=== PATIENT | male | born 1965 | race Caucasian/White ===

== ENCOUNTER 2019-04-20 16:09 | Emergency (ER) | payer MEDICAID ==
[~2019-04-20] VITALS: Ht 175.3 cm; Wt 67.1 kg
[2019-04-20 16:10] VITALS: BP 152/110
--- NOTE | 2019-04-20 16:16 | NUR ---
EVELINE FROM HOME FOR EVALUATION, PT ASLEEP ON THE COUCH AND GIRLFRIEND CALLED EMS AFTER PT HAD FALLEN OFF COUGH AND BECAME UNRESPONSIVE, GF THEN INITATED CPR AND THEN NOTED PATIENT BREATHING AGAIN BUT NOT ACTING NORMAL; BS ON SCENE WAS 307. PT UPON ARRIVAL IS AWAKE, ALERT X4, GCS 15. PT REMEMBERS SLEEPING ON THE COUGH AND WAKING UP TO PARAMEDICS SURROUNDING HIM. DENIES PAIN, WEAKNESS, DIZZINESS. HAND INGREDIENT SCALER EQUAL 5/5 BILATERALLY. PERRL. HX HTN Addendum: 04/20/19 at 1617 by MELISSA FULL CLEAR SPEECH
--- NOTE | 2019-04-20 16:17 | NUR ---
DR RENE EVALUATING PT AT BEDSIDE
--- NOTE | 2019-04-20 16:19 | NUR ---
PT DOES NOT REMEMBER CPR BY GIRLFRIEND
--- NOTE | 2019-04-20 16:27 | NUR ---
DR RENE EVALUATING PT'S GIRLFRIEND AT BEDSIDE. PER GIRLFRIEND: PT WAS SLEEPING ON THE SOFA WHEN SHE HEARD A THUMP AND FOUND PT ON THE FLOOR. PT WAS STICKING TONGUE OUT, FACE TURNING RED "LIKE A TOMATO", AND "HIS FIST THUMPING AGAINST HIS CHEST". GIRLFRIEND INITIATED CPR FOR 30-40 SECONDS AND PT "STARTED BREATHING THROUGH THE NOSE".
[2019-04-20] MEDS ORDERED: LORazepam 2 MG/ML VIAL ONE (16:51)
--- NOTE | 2019-04-20 16:52 | NUR ---
PT STATES HE NEEDS TO HAVE BM NOW, WANTS TO GO TO BATHROOM. PT TRANSFER SELF FROM GURNEY TO W/C, AND W/C ASSIST TO BATHROOM WITH GIRLFRIEND. GIRLFRIEND TO REMAIN IN BATHROOM TO HELP PT AND ADVISED TO PULL HELP CORD IF NEEDING ASSISTANCE.
[2019-04-20] MEDS ORDERED: LORazepam 2 MG/ML VIAL IVP ONE (16:55)
--- NOTE | 2019-04-20 16:57 | NUR ---
PT HAD SEIZURE IN BATHROOM LASTING LESS THAN 1 MINUTE APPROXIMATELY, NO HX OF SEIZURE. GIRLFRIEND WAS WITH PT WHEN SEIZURE STARTED. GIRLFRIEND PULLED HELP CORD AND STAFF AND DR RENE ARRIVED TO BATHROOM. PT WITH VIOLENT MUSCLE CONTRACTIONS AND LOC. FACE TURNING RED THEN PALE. RETURN OF NORMAL SKIN COLOR TO FACE WHEN MUSCLE CONTRACTIONS ENDED. NO BOWEL OR BLADDER INCONTINENCE. NO ORAL TRAUMA. PT DID NOT FALL OUT OF W/C. PT CARRIED FROM WHEELCHAIR TO GURNEY BY STAFF. PT POST ICTAL. PT PLACED ON BEDSIDE MONITOR. WITH VITALS POST SEIZURE: 149/92, 100% RA, 104 HR, 22 RR. 2MG ATIVAN ADMINISTERED BY DORENE NAIDU PER DR. RENE ORDERS. PLACED ON 2L VIA NC.
--- NOTE | 2019-04-20 17:07 | NUR ---
LASER ENGINEER AT BEDSIDE
[2019-04-20] MEDS ORDERED: levETIRAcetam 1,000 MG in NACL 0.9% 100 ML IV ONE (17:10)
--- NOTE | 2019-04-20 17:11 | NUR ---
CALLED & ASKED HOU[facility] TO BRING STRAIGHT CATH KITS.
[2019-04-20 17:24] LABS: BASOPHILS # (AUTO) 0.1 K/uL (0.00-0.22); BASOPHILS % (AUTO) 1.1 % (0.0-2.0); EOSINOPHILS # (AUTO) 0.1 K/uL (0-0.4); EOSINOPHILS % (AUTO) 1.1 % (0.0-4.0); HEMOGLOBIN 16.3 g/dL (12.0-18.0); LYMPHOCYTES # (AUTO) 1.3 K/uL (2.0-11.5); LYMPHOCYTES % (AUTO) 14.7 % (20.5-51.1); MEAN CORPUSCULAR HEMOGLOBIN 33 pg (27-31); MEAN CORPUSCULAR HGB CONC 33 g/dL (33-37); MEAN CORPUSCULAR VOLUME 99.3 fL (80-94); MONOCYTES # (AUTO) 0.4 K/uL (0.8-1.0); MONOCYTES % (AUTO) 4.7 % (1.7-9.3); NEUTROPHILS # (AUTO) 7.1 K/uL (1.8-7.7); NEUTROPHILS % (AUTO) 78.4 % (42.2-75.2); PLATELET COUNT (AUTO) 163 K/uL (140-450); RED BLOOD CELL COUNT(AUTO) 4.94 MIL/uL (4.20-6.10); RED CELL DISTRIBUTION WIDTH 12.9 % (11.6-13.7); WHITE BLOOD COUNT (AUTO) 9.1 K/uL (4.8-10.8)
[2019-04-20] MEDS ORDERED: levETIRAcetam 100 MG/ML VIAL IV ONE (17:30)
[2019-04-20 17:37] LABS: ANION GAP 25.5 (8-16); CARBON DIOXIDE 16.3 mmol/L (21-32); CHLORIDE 97 mmol/L (98-107); CREATININE 1.4 mg/dL (0.7-1.3); GFR ARICAN-AMERICAN 68 mL/min (>90); GLUCOSE 301 mg/dL (74-106); POTASSIUM 3.8 mmol/L (3.5-5.1); SODIUM SERUM 135 mmol/L (136-145); UREA NITROGEN, BLOOD 17 mg/dL (7-18)
[2019-04-20 17:44] LABS: ACETAMINOPHEN < 0.5 ug/ml (10-30); ALBUMIN 3.7 g/dL (3.4-5.0); ASPARTATE AMINOTRANSFERASE 12 U/L (15-37); SALICYLATE < 2.8 mg/dL (2.8-20.0); TOTAL BILIRUBIN 0.6 mg/dL (0.0-1.0)
--- NOTE | 2019-04-20 17:56 | NUR ---
PT EYES OPEN SPONTANEOUSLY. GIRLFRIEND TOLD PT TO GO BACK TO SLEEP, PT REPLIED "OKAY" AND CLOSED EYES AGAIN.
--- NOTE | 2019-04-20 18:00 | NUR ---
300ML YELLOW URINE OUTPUT VIA STRAIGHT CATH. URINE SAMPLE LABELED AND HANDED TO CLOTH WINDER.
[2019-04-20 18:15] LABS: APPEARANCE,URINE CLEAR (CLEAR); BILIRUBIN,URINE NEGATIVE (NEGATIVE); BLOOD, URINE 3+ (NEGATIVE); COLOR,URINE YELLOW (YELLOW); LEUKOCYTE ESTERASE ,URINE NEGATIVE (NEGATIVE); NITRITE, URINE NEGATIVE (NEGATIVE); PH,URINE 5.5 (5.0-9.0); UGLUCOSE 3+ (NEGATIVE)
--- NOTE | 2019-04-20 18:21 | NUR ---
PT RESTING IN BED, RESPIRATIONS EVEN AND UNLABORED ON 2L VIA NC, ON BEDSIDE MONITOR, VSS. GIRLFRIEND SITTING AT BEDSIDE. BED LOCKED & LOW, BEDRAILS UP X2 AND PADDED FOR SZ PRECAUTION.
[2019-04-20 18:22] LABS: BARBITURATE, URINE NEG. ng/ml (NEG <=200); BENZODIAZEPINE, URINE NEG. ng/mL (NEG <=200); CANNABINOID, URINE NEG. ng/mL (NEG <=50); COCAINE, URINE NEG. ng/mL (NEG <=300); OPIATE, URINE NEG. ng/mL (NEG <=2000); PHENCYCLIDINE SCREEN,URINE NEG. ng/mL (NEG <=25)
[2019-04-20 18:23] LABS: WBC,URINE 0-5 /HPF (0-5)
[2019-04-20 18:24] LABS: HYALINE CASTS, URINE 0-10 /LPF (None Seen)
--- NOTE | 2019-04-20 19:10 | NUR ---
REPORT TO BERNARDINO NAIDU. TRANSFER OF CARE AT THIS TIME.
--- NOTE | 2019-04-20 19:30 | NUR ---
Pt appears to be in no distress at this time. VSS. Pt AAOX4 gcs 15. Girlfirend left home for clothes. Pt signed consent for transfer. Pt denies pain at this time. Will continue to montior.
--- NOTE | 2019-04-20 19:31 | NUR ---
PT HAVING LEFT SIDE HEMINAOPIA. PT UNABLE TO SEE ANY THING ON LEFT SIDE OF BODY. PT NIHSS OF 2. DENIES BLURRED VISION OR DOUBLE VISION.
--- NOTE | 2019-04-20 20:30 | NUR ---
NO CHANGES FROM PREVIOUS ASSESSMENT. VSS. PT APPEARS TO BE IN NO DISTRESS.
--- NOTE | 2019-04-20 21:10 | NUR ---
DR. CASH SPOKE WITH NEUROSURGEON FROM [facility] FOR TRANSFER.
[2019-04-20] MEDS ORDERED: INSULIN REGULAR, HUMAN 100 UNIT/ML VIAL IVP ONE (21:25)
--- NOTE | 2019-04-20 22:30 | NUR ---
Pt appears to be resting comfortably. no changes in patient condition. pt still NIHSS of 2. Will continue to monitor. waiting for [facility] for ICU bed for transfer.
--- NOTE | 2019-04-21 00:30 | NUR ---
No changes from previous assessment. VSS. pt resting comfortably in bed. girl firend at bedside. Will continue to monitor.
--- NOTE | 2019-04-21 02:30 | NUR ---
Pt resting comfortably in bed. VSS. No changes form previous assessment. Will continue to monitor.
--- NOTE | 2019-04-21 02:37 | NUR ---
Spoke with [facility]. They state, working on bed for transfer.
--- NOTE | 2019-04-21 03:36 | NUR ---
Spoke with [facility] house calls nurse. She is working on admit for pt.
--- NOTE | 2019-04-21 04:30 | NUR ---
PT APPEARS TO BE RESTING COMFORTABLY. VSS. NO CHANGES FROM PREVIOUS ASSESSMENT.
--- NOTE | 2019-04-21 05:34 | NUR ---
SPOKE WITH [facility]. THEY STATE THEY DOWN GRADED SOME PATIENTS, THEY MAY HAVE A BED AVAILIBLE.
[2019-04-21] MEDS ORDERED: DEXAMETHASONE 4 MG/ML VIAL IVP ONE ×2 (05:40→15:35)
--- NOTE | 2019-04-21 06:30 | NUR ---
PT RESTING COMFORTABLY IN BED. VSS. NO CHANGES FROM PREVIOUS ASSESSMENT. NO NEW NEURO CHANGES.
--- NOTE | 2019-04-21 07:37 | NUR ---
SBAR REPORT RECEIVED FROM BERNARDINO. PATIENT RESTING IN BED. AAOX4. GCS 15. DENIES ANY PAIN OR DISCOMFORT. ALL NEEDS MET AT THIS TIME.
[2019-04-21] MEDS ORDERED: MORPHINE SULFATE 4 MG/ML SYR ONE (07:55)
[2019-04-21] MEDS ORDERED: ONDANSETRON 4 MG/2 ML VIAL ONE (07:56)
--- NOTE | 2019-04-21 09:35 | NUR ---
PATIENT IS RESTING AT BEDSIDE. AROUSABLE BY VOICE, ABLE TO FOLLOW COMMANDS. GCS 15, AAOX4. ALL NEEDS MET AT THIS TIME.
--- NOTE | 2019-04-21 11:30 | NUR ---
PATIENT IS RESTING IN BED. NO CHANGES IN NEURO STATUS. VSS. GCS 15. REQUESTED US TO CALL GIRLFRIEND SO SHE CAN BRING HIM HIS CELLPHONE.
--- NOTE | 2019-04-21 14:25 | NUR ---
PATIENT IS RESTING IN BED, AAOX4, GCS 15. NO CHANGES IN NEURO STATUS
[2019-04-21] MEDS ORDERED: levETIRAcetam 1,000 MG in NACL 0.9% 100 ML IV ONE (15:40)
[2019-04-21] MEDS ORDERED: levETIRAcetam 100 MG/ML VIAL IV ONE (15:42)
[2019-04-21 16:26] VITALS: BP 118/64
--- NOTE | 2019-04-21 16:28 | NUR ---
Patient to be transferred to [facility]. Is being transferred due to HIGHER LEVEL OF CARE. Receiving facility has accepting physician and available space. ER physician has signed transfer form. Patient or responsible republican has agreed to transfer and signed form. Patient belongings inventoried and will be sent with patient. Copy of nursing notes, lab reports, EKG, Physicians Orders and X-rays to be sent with patient. Report called to ORA NAIDU at receiving facility. [facility] ambulance service has been called for transfeR and is at bedside for transport.
== END 2019-04-21 16:28 | disposition short-term general hospital (02) ==
LOC: MED 16:09
DX: R56.9 Unspecified convulsions (principal); R41.82 Altered mental status, unspecified; I10 Essential (primary) hypertension; F17.200 Nicotine dependence, unspecified, uncomplicated
CPT/HCPCS: 36415; 70450; 71045; 80053; 80305; 81001; 82550; 82948; 84484; 85025; 93005; 96365; 96366; 96375; 96376; 99285; C1758; G0480; G0482; J1100; J1815; J1953; J2060; J2270; J2405; Q0092